=== PATIENT | male | born 1975 | race Caucasian/White ===

== ENCOUNTER → 2021-09-09 13:29 | Outpatient (BNVA) | payer MEDICARE, SELFPAY | PROVIDERS: Visit Provider Psychiatry & Neurology Psychiatry | DX: F43.12 Post-traumatic stress disorder, chronic (principal); F31.9 Bipolar disorder, unspecified; F17.210 Nicotine dependence, cigarettes, uncomplicated; F12.20 Cannabis dependence, uncomplicated; F10.21 Alcohol dependence, in remission | CPT/HCPCS: 99204 ==

== ENCOUNTER → 2021-11-04 10:55 | Outpatient (BNVA) | payer MEDICARE, SELFPAY | PROVIDERS: Visit Provider Psychiatry & Neurology Psychiatry | DX: F43.12 Post-traumatic stress disorder, chronic (principal); F31.9 Bipolar disorder, unspecified; F17.210 Nicotine dependence, cigarettes, uncomplicated; F12.20 Cannabis dependence, uncomplicated; F10.21 Alcohol dependence, in remission; F60.3 Borderline personality disorder | CPT/HCPCS: 99214 ==

== ENCOUNTER → 2021-12-16 11:12 | Outpatient (BNVA) | payer MEDICARE, SELFPAY | PROVIDERS: Visit Provider Psychiatry & Neurology Psychiatry | DX: F60.3 Borderline personality disorder (principal); F31.9 Bipolar disorder, unspecified; F43.12 Post-traumatic stress disorder, chronic; F10.21 Alcohol dependence, in remission; F12.20 Cannabis dependence, uncomplicated; Z79.899 Other long term (current) drug therapy; F17.210 Nicotine dependence, cigarettes, uncomplicated | CPT/HCPCS: 99214 ==

== ENCOUNTER 2022-05-17 17:13 | Emergency (ER) | payer MEDICARE, SELFPAY ==
[2022-05-17 17:51] VITALS: BP 134/90; PULSE 108; RESP 16; TEMP 36.8; O2SAT 96; BMI 30.3
[2022-05-17 18:06] VITALS: BP 134/90; PULSE 108; RESP 16; TEMP 36.8; O2SAT 96
--- NOTE | 2022-05-17 18:10 | ED_ITS ---
HPI - Dental/Oral General: Chief complaint: Dental/Oral Stated complaint: dental pain Time Seen by Provider: 05/17/22 18:04 History of Present Illness: Patient is a 46-year-old male comes to the ED with dental pain. Symptoms started approximately 3 days ago. Pain started in the left lower jaw. He rates pain currently a 7 out of 10. He has multiple teeth with extensive dental decay. He is currently calling around to dentist office to get an appointment set up. Associated symptoms: Denies fever(s) or odynophagia Review of Systems Const: Denies: fever(s), chills or fatigue Eyes: Denies: change in vision or eye discomfort ENMT: Reports: dental pain; Denies: throat pain, odynophagia, nasal discharge or nasal congestion Card: Denies: chest pain, palpitations, edema, swelling of feet/ankles, dyspnea on exertion or orthopnea Resp: Denies: dyspnea, productive cough or non-productive cough GI: Denies: abdominal pain, nausea, vomiting, diarrhea, constipation or hematochezia : Denies: flank pain, difficulty urinating, dysuria or hematuria Musc: Denies: neck pain, back pain or extremity swelling Skin/Breast: Denies: rash or new lesions Neuro: Denies: headache(s), numbness in extremities or weakness in extremities PFS ED PFSH: Medical History (Updated 05/17/22 @ 22:53 by ALEXANDRIA Hdz) No pertinent family history Psychiatric care Social History Smoking and tobacco status: current every day smoker cigarettes Packs smoked per day: 1 Years cigarettes smoked: 30 Quit status (tobacco): has tried quititng Number of times tried to quit tobacco: 1 Second hand smoke exposure: Yes Physical Exam Const: COMMON NORMALS: no acute distress, patient oriented x3 and alert GENERAL APPEARANCE: cooperative HENMT: COMMON NORMALS: normocephalic HEAD & SCALP: normocephalic MOUTH: Normal oral and palatal mucosa present TEETH & GINGIVA: Yes abnormal tooth and associated gingiva (Multiple extensive dental decay throughout teeth on bot kay jaw) lower left tender and with associated gingival edema, Yes caries and Yes poor dentition THROAT: posterior oropharynx normal and uvula midline Neck/C-Spine: COMMON NORMALS: supple GENERAL: Yes normal visual inspection Resp: COMMON NORMALS: normal respiratory effort, No retractions, No use of accessory muscles and clear to auscultation bilaterally AUSCULTATION: clear to auscultation bilaterally Cardio: COMMON NORMALS: regular rate, regular rhythm, S1 normal heart sound present, S2 normal heart sound present, No gallops present (Cardio), No clicks present (Cardio), No murmurs present (Cardio) and Peripheral pulses 2+ throughout RATE: regular rate RHYTHM: regular rhythm HEART SOUNDS: S1 normal heart sound present and S2 normal heart sound present PERIPHERAL PULSES: Peripheral pulses 2+ throughout GI: COMMON NORMALS: Normal to inspection, nondistended, normoactive bowel sounds present, Soft to palpation, non-tender and no masses PALPATION: Yes Soft to palpation : COMMON NORMALS: Yes no CVA tenderness BLADDER/KIDNEY EXAM: Yes no CVA tenderness Back/Pelvis: COMMON NORMALS: no CVA tenderness Extremity: COMMON NORMALS: normal to inspection Neuro: COMMON NORMALS: patient oriented x3 SENSORIUM/ORIENTATION: Yes alert GAIT: Yes Normal gait present Skin: GENERAL SKIN EXAM: dry skin Course Vital Signs: Vital signs: Vital Signs Temperature 98.3 F 05/17/22 18:06 Pulse Rate 108 H 05/17/22 18:06 Respiratory Rate 16 05/17/22 18:06 Blood Pressure 134/90 05/17/22 18:06 Pulse Oximetry 96 05/17/22 18:06 Oxygen Delivery Me thod 05/17/22 18:06 MDM - Dental/Oral Medical Decision Making Patient is a 46 year old male in no acute distress that comes to the ED with dental pain. He has multiple and very extensive dental decay's throughout his teeth on his left lower jaw. Denies any fevers or trouble breathing. Vitals are stable. Patient was discharged home with a prescription for clindamycin, lidocaine viscous and Celebrex for pain. He was told to contact a dentist to have his dental pain further evaluated. Patient understood agree with plan. Discharge Plan Discharge Patient Disposition: Home Clinical Impression: Pain due to dental caries Condition: Stable Prescriptions: New clindamycin HCl 150 mg capsule 300 mg PO QID 7 Days Qty: 56 0RF Celebrex 100 mg capsule 100 mg PO BID PRN (Reason: pain) Qty: 20 0RF Lidocaine Viscous 2 % solution 1 applic mucous membrane BID PRN (Reason: pain) Qty: 100 0RF Rx Instructions: Swish and spit 5 mL twice daily as needed dental pain No Action omega-3 fatty acids [Fish Oil Concentrate] 1,000 mg capsule 1,000 mg PO DAILY Centrum Ultra Men's 8 mg iron- 200 mcg-600 mcg tablet PO DAILY buspirone 30 mg tablet 30 mg PO BID Qty: 60 2RF quetiapine [Seroquel] 400 mg tablet 800 mg PO .HS Qty: 60 2RF hydroxyzine pamoate [Vistaril] 50 mg capsule 50 mg PO QID PRN (Reason: anxiety) Qty: 120 2RF trazodone 100 mg tablet 400 mg PO .HS PRN (Reason: insomnia) Qty: 120 2RF Discharge Orders: Discharge ED (Routine); Ordered 05/17/22 Ordered By: Raffaele Bryan Discharge Diet: Regular Discharge Activity: Resume usual activity Patient Instructions: Dental Caries (Cavities) Activity Restrictions/Additional Instructions: Calling an appointment set up with dentist for further evaluation and management of dental pain. take medications as prescribed. Return to the ER or your medical provider if condition worsens. Please read and understand discharge instructions. Thank you for choosing [facility] for your healthcare needs today. Please realize this is an emergency room and that we are providing you with a medical screening exam and this may not be complete and all inclusive of all the testing and or work up that you may need to determine your ailment or severity of your illness. It is very important that you follow up as instructed or that you return to the Emergency Department should you have concerns or if your condition changes or worsens in any way. Coding Level of Care Code ED Multimedia Author for Brina Harmon Exam Comprehensive
[2022-05-17] MEDS: HYDROcodone-acetaminophen 7.5-325 mg Tablet 1 TAB PO (18:20)
[2022-05-17] MEDS: clindamycin 150 mg Capsule 300 MG PO (18:26)
== END 2022-05-17 18:35 | disposition home or self-care (01) ==
PROVIDERS: Emergency Provider Physician Assistant
DX: K02.9 Dental caries, unspecified (principal); F17.210 Nicotine dependence, cigarettes, uncomplicated
CPT/HCPCS: 99283

== ENCOUNTER 2022-06-17 10:50 | Emergency (ER) | payer MEDICARE, SELFPAY ==
[2022-06-17] VITALS (7 sets, daily range): BP systolic 119–161; BP diastolic 84–99; PULSE 88–108; RESP 16–18; TEMP 36.6; O2SAT 91–96; BMI 29.8
--- NOTE | 2022-06-17 11:04 | ECG_ITS ---
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 Measurements Intervals [place] Rate: 112 P: 20 WI: 124 QRS: 81 QRSD: 100 T: 50 QT: 307 QTc: 421 Interpretive Statements SINUS TACHYCARDIA ABNORMAL RHYTHM ECG INTERPRETATION BASED ON A DEFAULT AGE OF 40 YEARS No previous ECG available for comparison Electronically Signed On 06-17-2022 20:42:01 CDT by Ania Potts M.D. [id number]
--- NOTE | 2022-06-17 11:24 | XRR_ITS ---
PROCEDURE INFORMATION: Exam: XR Chest Exam date and time: 06/17/2022 11:38 AM Age: 46 years old Clinical indication: Angina pectoris; Patient HX: Chest pain; Per PT headache is worse than chest pain; Sick xseveral days TECHNIQUE: Imaging protocol: Radiologic exam of the chest. Views: 1 view. COMPARISON: No relevant prior studies available. FINDINGS: Lungs: No pulmonary vascular congestion, pulmonary edema or pneumonia. Pleural spaces: No pleural effusion or pneumothorax. Heart/Mediastinum: The cardiac silhouette is not enlarged. The mediastinal contours are normal. Bones/joints: No acute osseous abnormality. XR/XR chest 1V portable [id number] IMPRESSION: No acute finding.
[2022-06-17 11:31] LABS: Basophils % 0.3 %; Eosinophils % 0.3 %; Hematocrit 45.8 % (42.0-52.0); Hemoglobin 15.7 g/dL (11.7-16.6); Lymphocytes # 1.3 10^3/uL (0.8-4.8); Lymphocytes % 21.3 %; Mean Corpuscular HGB Conc 34.3 g/dL (30.0-36.0); Mean Corpuscular Hemoglobin 30.6 pg (28.0-34.0); Mean Corpuscular Volume 89.3 fl (80-94); Mean Platelet Volume 9.5 fL (7.4-10.4); Monocytes # 0.6 10^3/uL (0.2-0.9); Monocytes % 10.5 %; Neutrophils # 4.04 10^3/uL (1.8-7.7); Neutrophils % 67.3 %; Nucleated Red Blood Cells % 0 %; Platelet Count 171 10^3/cmm (130-400); Red Blood Count 5.13 10^6/uL (4.1-5.3); Red Cell Distribution Width 14.7 % (12.1-15.1)
[2022-06-17 11:47] LABS: Troponin(5th) Baseline 6 ng/L (0-15)
[2022-06-17 11:49] LABS: Alanine Aminotransferase 65 U/L (0-41); Albumin Level 4.3 g/dL (3.5-5.2); Alkaline Phosphatase 70 U/L (40-130); Anion Gap 17.2 (5-19); Blood Urea Nitrogen 15 mg/dL (6-20); Calcium 9.2 mg/dL (8.5-10.5); Carbon Dioxide 20 mmol/L (22-29); Chloride 100 mmol/L (98-107); Glomerular Filtration Rate 91.7 mL/min (90-130); Glucose 144 mg/dL (65-115); Osmolality Calculated 279 mOsm/kg (285-295); Potassium 4.2 mmol/L (3.5-5.1); Sodium 133 mmol/L (136-145); Total Bilirubin 0.2 mg/dL (0.15-1.2); Total Protein 7.3 g/dL (6.6-8.7)
[2022-06-17 11:50] LABS: Aspartate Amino Transferase 54 U/L (0-40)
[2022-06-17] MEDS: promethazine 25 mg/mL SDV 1 mL IM (13:07)
[2022-06-17] MEDS: ketorolac 30 mg/mL INJ IVP (13:07)
--- NOTE | 2022-06-17 13:45 | CT_ITS ---
WS: [id number] CT HEAD TECHNIQUE: Noncontrast CT of the head obtained from the skullbase to the vertex. CLINICAL INFORMATION: migriane COMPARISON: None. DLP: 1153.[address] scans at [facility] use at least one of these dose optimization techniques: automated e xposure control; mA and/or kV adjustment per patient size (includes targeted exams where dose is matc hed to clinical indication); or iterative reconstruction. FINDINGS: No evidence of intracranial hemorrhage or mass effect. Ventricular system and basal cisterns are bradford nt. No extra-axial fluid collections. No evidence of mass or mass effect. Normal marie-white different iation. Paranasal sinuses and mastoid air cells are well aerated. .Normal visualized soft tissues. Incidental slightly low-lying cerebellar tonsils. No hydrocephalus. CT/CT head wo con* [id number] IMPRESSION: 1. No evidence of intracranial hemorrhage or mass effect. 2. No acute intracranial findings.
--- NOTE | 2022-06-17 13:50 | ECG_ITS ---
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 Measurements Intervals [place] Rate: 86 P: 49 IA: 144 QRS: 78 QRSD: 97 T: 59 QT: 324 QTc: 389 Interpretive Statements SINUS RHYTHM Compared to ECG 06/17/2022 11:04:51 Sinus tachycardia no longer present Electronically Signed On 06-17-2022 20:49:08 CDT by Ania Potts M.D. [email or web address] Media Systemmount [email or web address] health systemRed Falcon Development/store/[id number]
[2022-06-17 14:03] LABS: Troponin 5 2HR Delta 0 ABS# (0-10)
[2022-06-17] MEDS: morphine 4 mg/mL SDV 1 mL IVP (14:10)
--- NOTE | 2022-06-17 16:50 | W.ED.CHESTPA ---
HPI - Chest Pain General: Chief Complaint: Chest Pain Stated Complaint: Migraine/Dizzy/CP Time Seen by Provider: 06/17/22 11:17 Source: patient Mode of arrival: ambulatory History of Present Illness: 46-year-old male presents emergency room complaining of right-sided temporal headache. No recent falls or trauma or head injury. He is also complaining some vague chest discomfort that began sometime after the headache. No fever sweats chills no vomiting mild photophobia. MD complaint: chest pain Onset (ago): minute(s) Timing of current episode: episodic Prior episodes: Yes Onset: during rest Pain location: left chest Severity: mild Quality: tightness Relieving factors: nothing Exacerbating factors: nothing Associated symptoms: Deny abdominal pain, diaphoresis, dyspnea, fever(s), leg edema, nausea, palpitations, sense of impending doom, syncope or vomiting Treatment prior to arrival: none Review of Systems Const: Denies: fever(s), chills, fatigue, malaise or diaphoresis ENMT: Denies: throat pain, ear or mastoid pain, nasal discharge or nasal congestion Card: Reports: chest pain; Denies: palpitations or syncope Resp: Denies: dyspnea GI: Denies: abdominal pain, nausea or vomiting : Denies: flank pain, difficulty urinating, dysuria, urinary frequency or urinary urgency Skin/Breast: Denies: rash or pruritus PFSH ED PFSH: Medical History No pertinent family history Psychiatric care Social History Smoking and tobacco status: current every day smoker cigarettes Packs smoked per day: 0.75 Years cigarettes smoked: 30 Quit status (tobacco): has tried quititng Number of times tried to quit tobacco: 1 Second hand smoke exposure: Yes Smoking risk assessment/counseling performed?: No Alcohol intake: current Alcohol intake frequency: holidays/special occasions only Alcohol type: beer and hard liquor Desire information about alcohol rehabilitation?: No Counseling given: No Desire information about substance/drug rehabilitation?: No Counseling given: No Physical Exam Const: COMMON NORMALS: no acute distress GENERAL APPEARANCE: cooperative and comfortable ORIENTATION/CONSCIOUSNESS: Yes awake, Yes oriented to person, Yes oriented to place and Yes oriented to time HENMT: COMMON NORMALS: normocephalic, atraumatic and hearing grossly normal bilaterally HEAD & SCALP: normocephalic and atraumatic Resp: COMMON NORMALS: normal respiratory effort, No retractions, No use of accessory muscles and clear to auscultation bilaterally AUSCULTATION: clear to auscultation bilaterally Cardio: COMMON NORMALS: regular rate, regular rhythm and No murmurs present (Cardio) RATE: regular rate RHYTHM: regular rhythm GI: COMMON NORMALS: Soft to palpation and No hepatosplenomegaly present AUSCULTATION: Yes normoactive bowel sounds PALPATION: Yes Soft to palpation, No Tenderness to palpation present (GI), No Guarding due to palpation present (GI) and Yes No hepatosplenomegaly present Extremity: COMMON NORMALS: normal to inspection, capillary refill normal, no clubbing, cyanosis or edema, no calf tenderness and no pedal edema Neuro: SENSORIUM/ORIENTATION: Yes oriented to person, Yes oriented to place and Yes oriented to time Skin: COMMON NORMALS: no rashes or lesions noted GENERAL SKIN EXAM: no rashes or lesions noted Course Vital Signs: Vital signs: Vital Signs Temperature 97.8 F 06/17/22 11:13 Pulse Rate 90 06/17/22 14:40 Respiratory Rate 18 06/17/22 14:59 Blood Pressure 135/99 06/17/22 14:59 Pulse Oximetry 96 06/17/22 14:59 Oxygen Delivery Me thod 06/17/22 13:11 MDM - Chest Pain Medical Decision Making Labs imaging and EKG reviewed no acute EKG changes troponins normal discharge patient home his headache is much improved discharged home he can use promethazine Nantz NSAIDs such as ibuprofen or Aleve if has recurrent headache follow-up with primary care part if persists or recurs if significant worsening or change symptoms return to the emergency room. Medical Records I reviewed the patient's medical records. Lab Data I reviewed the patient's lab results. : 06/17/22 11:20 06/17/22 11:20 Radiology Impressions Chest X-Ray 06/17/22 11:24 IMPRESSION: No acute finding. Head CT 06/17/22 13:45 IMPRESSION: 1. No evidence of intracranial hemorrhage or mass effect. 2. No acute intracranial findings. Laboratory Results WBC 6.0 10^3/uL (4.0-10.0) 06/17/22 11:20 RBC 5.13 10^6/uL (4.1-5.3) 06/17/22 11:20 Hgb 15.7 g/dL (11.7-16.6) 06/17/22 11:20 Hct 45.8 % (42.0-52.0) 06/17/22 11:20 MCV 89.3 fl (80-94) 06/17/22 11:20 MCH 30.6 pg (28.0-34.0) 06/17/22 11:20 MCHC 34.3 g/dL (30.0-36.0) 06/17/22 11:20 RDW 14.7 % (12.1-15.1) 06/17/22 11:20 Plt Count 171 10^3/cmm (130-400) 06/17/22 11:20 MPV 9.5 fL (7.4-10.4) 06/17/22 11:20 Neut % (Auto) 67.3 % 06/17/22 11:20 Lymph % (Auto) 21.3 % 06/17/22 11:20 [place] % (Auto) 10.5 % 06/17/22 11:20 Eos % (Auto) 0.3 % 06/17/22 11:20 Baso % (Auto) 0.3 % 06/17/22 11:20 Neut # (Auto) 4.04 10^3/uL (1.8-7.7) 06/17/22 11:20 Lymph # (Auto) 1.3 10^3/uL (0.8-4.8) 06/17/22 11:20 [place] # (Auto) 0.6 10^3/uL (0.2-0.9) 06/17/22 11:20 Eos # (Auto) 0.0 10^3/uL (0.0-0.8) 06/17/22 11:20 Baso # (Auto) 0.0 10^3/uL (0.0-0.1) 06/17/22 11:20 Nucleated RBC % (auto) 0 % 06/17/22 11:20 Nucleated RBCs # 0.0 /100WBC 06/17/22 11:20 Sodium 133 mmol/L (136-145) L 06/17/22 11:20 Potassium 4.2 mmol/L (3.5-5.1) 06/17/22 11:20 Chloride 100 mmol/L (98-107) 06/17/22 11:20 Carbon Dioxide 20 mmol/L (22-29) L 06/17/22 11:20 Anion Gap 17.2 (5-19) 06/17/22 11:20 BUN 15 mg/dL (6-20) 06/17/22 11:20 Creatinine 0.9 mg/dL (0.7-1.2) 06/17/22 11:20 GFR Calculation 91.7 mL/min (90-130) 06/17/22 11:20 Glucose 144 mg/dL (65-115) H 06/17/22 11:20 Calculated Osmolality 279 mOsm/kg (285-295) L 06/17/22 11:20 Calcium 9.2 mg/dL (8.5-10.5) 06/17/22 11:20 Total Bilirubin 0.2 mg/dL (0.15-1.2) 06/17/22 11:20 AST 54 U/L (0-40) H 06/17/22 11:20 ALT 65 U/L (0-41) H 06/17/22 11:20 Alkaline Phosphatase 70 U/L (40-130) 06/17/22 11:20 Troponin T Baseline 6 ng/L (0-15) 06/17/22 11:20 Troponin T 120 Minute 6.00 ng/L (0-15) 06/17/22 13:30 Delta Troponin T 0 ABS# (0-10) 06/17/22 13:30 Total Protein 7.3 g/dL (6.6-8.7) 06/17/22 11:20 Albumin 4.3 g/dL (3.5-5.2) 06/17/22 11:20 Globulin 3.0 g/dL (1.3-4.6) 06/17/22 11:20 Discharge Plan Discharge Patient Disposition: Home Clinical Impression: Migraine, Atypical chest pain Condition: Stable Prescriptions: New promethazine 25 mg tablet 25 mg PO Q6H PRN (Reason: nausea and vomiting) Qty: 15 0RF No Action buspirone 30 mg tablet 30 mg PO BID Qty: 60 2RF hydroxyzine pamoate [Vistaril] 50 mg capsule 50 mg PO QID PRN (Reason: anxiety) Qty: 120 2RF Aspir-81 81 mg Tablet,Delayed Release (Dr/Ec) 162 mg PO Q6H PRN (Reason: Pain) Tylenol Ex Str Rapid Release 500 mg Tablet 1,000 mg PO Q6H PRN (Reason: Pain) Centrum Men 8 mg iron- 200 mcg-600 mcg Tablet 1 tab PO QAM trazodone 100 mg tablet 400 mg PO BEDTIME Seroquel 400 mg tablet 800 mg PO BEDTIME Discharge Orders: Discharge ED (Routine); Ordered 06/17/22 Ordered By: Kip Finch Discharge Diet: Usual diet Discharge Activity: Increase activity as tolerated Patient Instructions: Opioid Safety, Pain Management Activity Restrictions/Additional Instructions: Follow-up with your primary care doctor within the next week. You can use promethazine with Tylenol ibuprofen if symptoms recur. Avoid the use of alcohol, nicotine or marijuana. Coding Level of Care Code ED Fur Examiner for Brina Fwlorenzo Exam Detailed
== END 2022-06-17 15:00 | disposition home or self-care (01) ==
PROVIDERS: Emergency Provider Family Medicine
DX: R07.89 Other chest pain (principal); G43.909 Migraine, unspecified, not intractable, without status migrainosus; Z79.82 Long term (current) use of aspirin; F17.210 Nicotine dependence, cigarettes, uncomplicated
CPT/HCPCS: 36415; 70450; 71045; 80053; 84484; 85025; 93005; 96372; 96374; 96375; 99285; J1885; J2270; J2550

== ENCOUNTER 2022-08-30 17:02 | Emergency (ER) | payer MEDICARE, SELFPAY ==
[2022-08-30 17:12] VITALS: BP 155/97; PULSE 99; RESP 18; TEMP 36.8; O2SAT 99
--- NOTE | 2022-08-30 17:20 | ED_ITS ---
HPI - Dental/Oral General: Chief complaint: Dental/Oral Stated complaint: tooth pain Time Seen by Provider: 08/30/22 17:20 History of Present Illness: 47-year-old male patient comes in today with complaints of left lower jaw pain. Patient has a history of jaw repair with plate. Patient reports over the last 2 days he has had increasing pain and discomfort to the jaw. Patient has had difficulty sleeping due to the pain. Patient appears nontoxic. No significant redness or swelling is noted to the face. Review of Systems ENMT: Reports: dental pain PFSH ED PFSH: Medical History No pertinent family history Psychiatric care Social History Smoking and tobacco status: current every day smoker cigarettes Packs smoked per day: 0.75 Years cigarettes smoked: 30 Quit status (tobacco): has tried quititng Number of times tried to quit tobacco: 1 Second hand smoke exposure: Yes Smoking risk assessment/counseling performed?: No Alcohol intake: current Alcohol intake frequency: holidays/special occasions only Alcohol type: beer and hard liquor Desire information about alcohol rehabilitation?: No Counseling given: No Desire information about substance/drug rehabilitation?: No Counseling given: No Physical Exam Const: COMMON NORMALS: alert HENMT: COMMON NORMALS: normocephalic HEAD & SCALP: normocephalic MOUTH: Normal oral and palatal mucosa present Neck/C-Spine: COMMON NORMALS: full ROM Resp: COMMON NORMALS: normal respiratory effort Cardio: COMMON NORMALS: regular rate RATE: regular rate Extremity: COMMON NORMALS: normal to inspection Neuro: SENSORIUM/ORIENTATION: Yes alert Skin: COMMON NORMALS: turgor normal GENERAL SKIN EXAM: turgor normal Course Vital Signs: Vital signs: Vital Signs Temperature 98.2 F 08/30/22 17:12 Pulse Rate 99 08/30/22 17:12 Respiratory Rate 16 08/30/22 17:39 Blood Pressure 155/97 08/30/22 17:12 Pulse Oximetry 99 08/30/22 17:12 MDM - Dental/Oral Medical Decision Making 47-year-old male patient comes in today for complaints of pain and discomfort to his left lower jaw. Patient has been taking clindamycin for the past day when the pain started to the area. Patient does have a history of dental infection to that area. On exam patient has poor dentition with significant decay to the teeth on that side of the mouth. Patient also has a history of a jaw repair with plate. Differential diagnosis includes dental infection, periapical abscess, pain due to dental caries. Patient was treated for pain with 4 mg of morphine. Patient was also written for short prescription of hydrocodone. Patient was recommended follow-up with dentist on Thursday for further evaluation and treatment. Patient reports that he has a dentist available that he can follow-up with Thursday. Patient will continue with clindamycin antibiotic for infection concern. Discharge Plan Discharge Patient Disposition: Home Clinical Impression: Dental implant pain Qualifiers: Encounter type: initial encounter Qualified Code(s): T85.848A - Pain due to other internal prosthetic devices, implants and grafts, initial encounter Condition: Stable Prescriptions: New hydrocodone-acetaminophen 5-325 mg tablet 1 tab PO Q6H PRN (Reason: pain (scale score 7-10)) Qty: 7 0RF No Action buspirone 30 mg tablet 30 mg PO BID Qty: 60 2RF hydroxyzine pamoate [Vistaril] 50 mg capsule 50 mg PO QID PRN (Reason: anxiety) Qty: 120 2RF Aspir-81 81 mg Tablet,Delayed Release (Dr/Ec) 162 mg PO Q6H PRN (Reason: Pain) Tylenol Ex Str Rapid Release 500 mg Tablet 1,000 mg PO Q6H PRN (Reason: Pain) Centrum Men 8 mg iron- 200 mcg-600 mcg Tablet 1 tab PO QAM trazodone 100 mg tablet 400 mg PO BEDTIME Seroquel 400 mg tablet 800 mg PO BEDTIME promethazine 25 mg tablet 25 mg PO Q6H PRN (Reason: nausea and vomiting) Qty: 15 0RF Discharge Orders: Discharge ED (Routine); Ordered 08/30/22 Ordered By: Issac Irizarry Discharge Diet: Usual diet Discharge Activity: Increase activity as tolerated Patient Instructions: Toothache (ED), Opioid Safety Activity Restrictions/Additional Instructions: Home and rest. Drink plenty of fluids. Take antibiotic as directed. Follow-up with orofacial surgeon or dentist on Thursday or as scheduled. Coding Level of Care Code ED Corporate Fitness Program Coordinator for Brina Harmon
[2022-08-30 17:39] VITALS: RESP 16
[2022-08-30] MEDS: morphine 4 mg/mL SDV 1 mL IM (17:39)
[2022-08-30 18:24] VITALS: PULSE 102; RESP 18; O2SAT 97
[2022-08-30] MEDS: ketorolac 30 mg/mL INJ IM (18:24)
== END 2022-08-30 18:25 | disposition home or self-care (01) ==
LOC: ER 17:30
PROVIDERS: Emergency Provider Nurse Practitioner Family
DX: T85.848A Pain due to other internal prosthetic devices, implants and grafts, initial encounter (principal); Z79.82 Long term (current) use of aspirin; F17.210 Nicotine dependence, cigarettes, uncomplicated
CPT/HCPCS: 96372; 99284; J1885; J2270

== ENCOUNTER 2022-09-01 12:44 | Emergency (ER) | payer MEDICARE, SELFPAY ==
[2022-09-01 13:23] VITALS: BP 162/106; PULSE 108; RESP 18; TEMP 37.2; O2SAT 98
[2022-09-01 14:22] VITALS: PULSE 100; RESP 16; O2SAT 98
--- NOTE | 2022-09-01 14:23 | PC.NURSE ---
WHILE WITH PT IN LOBBY PT IS IN NAD.
--- NOTE | 2022-09-01 15:41 | CTR_ITS ---
PROCEDURE INFORMATION: Exam: CT Neck With Contrast Exam date and time: 09/01/2022 5:08 PM Age: 47 years old Clinical indication: Other: Left jaw swelling; Prior surgery; Surgery date: 6+ months; Surgery type: Chin; Patient HX: Left side facial/dental pain and swelling x 3 days; Additional info: Left mandible dental pain w/ swelling into neck TECHNIQUE: Imaging protocol: Computed tomography of the neck with contrast. Radiation optimization: All CT scans at this facility use at least one of these dose optimization techniques: automated exposure control; mA and/or kV adjustment per patient size (includes targeted exams where dose is matched to clinical indication); or iterative reconstruction. Contrast material: OMNIPAQUE 350; Contrast volume: 95 ml; Contrast route: INTRAVENOUS (IV); COMPARISON: CT head wo con* [id number] 06/17/2022 2:17 PM RADIATION DOSE METRICS: Total DLP (mGy-cm): 266.82 FINDINGS: Paranasal sinuses: There is a small amount of mucosal thickening in the sphenoid sinus. Visualized paranasal sinuses are otherwise clear. Dental: There is dental caries involving the left 2nd lower premolar tooth with partial destruction of the crown and lucency surrounding the root zone consistent with periapical abscess. This may be the source of the patient's facial infection. Pharynx: Unremarkable. No significant tonsillar enlargement. Larynx: Unremarkable. Epiglottis is normal. Prevertebral and retropharyngeal spaces: Unremarkable. Salivary glands: There is some focal swelling and enhancement in the left submandibular space adjacent to the left side of the mandible which may represent some additional infection. Thyroid: Normal. No enlarged or calcified nodules. Lymph nodes: There are mildly prominent lymph nodes in the left jugular chain. Trachea: Visualized trachea is unremarkable. Lungs: Unremarkable as visualized. Bones/joints: There are old postsurgical changes of the left side of the mandible near the symphysis with prior internal fixation using metallic plate and multiple screws. No acute fracture is identified. Soft tissues: There is soft tissue swelling mainly on the left side of the face with some thickening of the platysma muscle on the left and some soft tissue edema along the left side of the mandible. No definite abscess is demonstrated but there is possibly small fluid density collection adjacent to the left side of the mandible which could represent small subperiosteal abscess. CT/CT neck w con* [id number] IMPRESSION: 1. Dental and periodontal disease with findings worrisome for periapical abscess involving lower left premolar tooth 2. Findings of infection involving the left continuous drier operator and submandibular spaces.
--- NOTE | 2022-09-01 15:42 | ED_ITS ---
Documented by User: ALEXANDRIA Hdz 09/02/22 12:20 HPI - Dental/Oral General: Chief complaint: Dental/Oral Stated complaint: tooth pain and swelling Time Seen by Provider: 09/01/22 15:29 History of Present Illness: Patient is a 47-year-old male comes to the ED with dental pain and swelling. Patient states that he was seen here back on August 30 for same complaint. His dental pain is in the left lower mandible and he also has swelling in his left lower mandible. He has been taking the clindamycin as prescribed since discharge from ED couple days ago. His swelling is gotten worse and now he feels swelling into the left side of his neck and throat. He states that the swelling feels like it is causing some trouble breathing and he has difficulty swallowing. He rates the dental pain currently an 8 out of 10. Denies any other symptoms Associated symptoms: Denies fever(s) or odynophagia Review of Systems Const: Denies: fever(s), chills or fatigue Eyes: Denies: change in vision or eye discomfort ENMT: Reports: dental pain; Denies: throat pain, odynophagia, nasal discharge or nasal congestion Card: Denies: chest pain, palpitations, edema, swelling of feet/ankles, dyspnea on exertion or orthopnea Resp: Denies: dyspnea, productive cough or non-productive cough GI: Denies: abdominal pain, nausea, vomiting, diarrhea, constipation or hematochezia : Denies: flank pain, difficulty urinating, dysuria or hematuria Musc: Denies: neck pain, back pain or extremity swelling Skin/Breast: Denies: rash or new lesions Neuro: Denies: headache(s), numbness in extremities or weakness in extremities PFSH ED PFSH: Medical History No pertinent family history Psychiatric care Social History Smoking and tobacco status: current every day smoker cigarettes Packs smoked per day: 0.75 Years cigarettes smoked: 30 Quit status (tobacco): has tried quititng Number of times tried to quit tobacco: 1 Second hand smoke exposure: Yes Smoking risk assessment/counseling performed?: No Alcohol intake: current Alcohol intake frequency: holidays/special occasions only Alcohol type: beer and hard liquor Desire information about alcohol rehabilitation?: No Counseling given: No Desire information about substance/drug rehabilitation?: No Counseling given: No Physical Exam Const: COMMON NORMALS: patient oriented x3 and alert GENERAL APPEARANCE: cooperative HENMT: COMMON NORMALS: normocephalic HEAD & SCALP: normocephalic FACE & SINUS: edema on the left mandible and submandibular and Facial tenderness on exam of face and sinuses on the left mandible and submandibular MOUTH: Normal oral and palatal mucosa present TEETH & GINGIVA: Yes caries THROAT: posterior oropharynx normal and uvula midline Neck/C-Spine: COMMON NORMALS: supple GENERAL: Yes normal visual inspection Resp: COMMON NORMALS: normal respiratory effort, No retractions, No use of ac cessory muscles and clear to auscultation bilaterally AUSCULTATION: clear to auscultation bilaterally Cardio: COMMON NORMALS: regular rate, regular rhythm, S1 normal heart sound present, S2 normal heart sound present, No gallops present (Cardio), No clicks present (Cardio), No murmurs present (Cardio) and Peripheral pulses 2+ throughout RATE: regular rate RHYTHM: regular rhythm HEART SOUNDS: S1 normal heart sound present and S2 normal heart sound present PERIPHERAL PULSES: Peripheral pulses 2+ throughout GI: COMMON NORMALS: Normal to inspection, nondistended, normoactive bowel sounds present, Soft to palpation, non-tender and no masses PALPATION: Yes Soft to palpation : COMMON NORMALS: Yes no CVA tenderness BLADDER/KIDNEY EXAM: Yes no CVA tenderness Back/Pelvis: COMMON NORMALS: no CVA tenderness Extremity: COMMON NORMALS: normal to inspection Neuro: COMMON NORMALS: patient oriented x3 SENSORIUM/ORIENTATION: Yes alert GAIT: Yes Normal gait present Skin: GENERAL SKIN EXAM: dry skin Course Vital Signs: Vital signs: Vital Signs Temperature 98.9 F 09/01/22 13:23 Pulse Rate 100 09/01/22 14:22 Respiratory Rate 16 09/01/22 14:22 Blood Pressure 162/106 09/01/22 13:23 Pulse Oximetry 98 09/01/22 14:22 Oxygen Delivery Me thod 09/01/22 14:22 MDM - Dental/Oral Lab Data I reviewed the patient's lab results. 09/01/22 16:10 09/01/22 16:[address] 09/01/22 15:41 IMPRESSION: 1. Dental and periodontal disease with findings worrisome for periapical abscess involving lower left premolar tooth 2. Findings of infection involving the left engraved roller inspector and submandibular spaces. Laboratory Results WBC 14.5 10^3/uL (4.0-10.0) H 09/01/22 16:10 RBC 5.33 10^6/uL (4.1-5.3) H 09/01/22 16:10 Hgb 16.9 g/dL (11.7-16.6) H 09/01/22 16:10 Hct 48.3 % (42.0-52.0) 09/01/22 16:10 MCV 90.6 fl (80-94) 09/01/22 16:10 MCH 31.7 pg (28.0-34.0) 09/01/22 16:10 MCHC 35.0 g/dL (30.0-36.0) 09/01/22 16:10 RDW 12.7 % (12.1-15.1) 09/01/22 16:10 Plt Count 266 10^3/cmm (130-400) 09/01/22 16:10 MPV 8.9 fL (7.4-10.4) 09/01/22 16:10 Neut % (Auto) 76.7 % 09/01/22 16:10 Lymph % (Auto) 12.4 % 09/01/22 16:10 [place] % (Auto) 10.1 % 09/01/22 16:10 Eos % (Auto) 0.2 % 09/01/22 16:10 Baso % (Auto) 0.3 % 09/01/22 16:10 Neut # (Auto) 11.07 10^3/uL (1.8-7.7) H 09/01/22 16:10 Lymph # (Auto) 1.8 10^3/uL (0.8-4.8) 09/01/22 16:10 [place] # (Auto) 1.5 10^3/uL (0.2-0.9) H 09/01/22 16:10 Eos # (Auto) 0.0 10^3/uL (0.0-0.8) 09/01/22 16:10 Baso # (Auto) 0.1 10^3/uL (0.0-0.1) 09/01/22 16:10 Nucleated RBC % (auto) 0 % 09/01/22 16:10 Nucleated RBCs # 0.0 /100WBC 09/01/22 16:10 Sodium 135 mmol/L (136-145) L 09/01/22 16:10 Potassium 3.8 mmol/L (3.5-5.1) 09/01/22 16:10 Chloride 97 mmol/L (98-107) L 09/01/22 16:10 Carbon Dioxide 28 mmol/L (22-29) 09/01/22 16:10 Anion Gap 13.8 (5-19) 09/01/22 16:10 BUN 10 mg/dL (6-20) 09/01/22 16:10 Creatinine 0.7 mg/dL (0.7-1.2) 09/01/22 16:10 GFR Calculation 122.0 mL/min (90-130) 09/01/22 16:10 Glucose 114 mg/dL (65-115) 09/01/22 16:10 Calculated Osmolality 280 mOsm/kg (285-295) L 09/01/22 16:10 Calcium 10.2 mg/dL (8.5-10.5) 09/01/22 16:10 Total Bilirubin 0.7 mg/dL (0.15-1.2) 09/01/22 16:10 AST 11 U/L (0-40) 09/01/22 16:10 ALT 16 U/L (0-41) 09/01/22 16:10 Alkaline Phosphatase 91 U/L (40-130) 09/01/22 16:10 Total Protein 8.4 g/dL (6.6-8.7) 09/01/22 16:10 Albumin 4.6 g/dL (3.5-5.2) 09/01/22 16:10 Globulin 3.8 g/dL (1.3-4.6) 09/01/22 16:10 Discharge Plan Discharge Patient Disposition: Home Clinical Impression: Periapical abscess Condition: Stable Prescriptions: New clindamycin HCl 300 mg capsule 300 mg PO QID 7 Days Qty: 28 0RF hydrocodone-acetaminophen 5-325 mg tablet 1 tab PO Q6H PRN (Reason: pain (scale score 7-10)) Qty: 15 0RF No Action buspirone 30 mg tablet 30 mg PO BID Qty: 60 2RF hydroxyzine pamoate [Vistaril] 50 mg capsule 50 mg PO QID PRN (Reason: anxiety) Qty: 120 2RF hydrocodone-acetaminophen 5-325 mg tablet 1 tab PO Q6H PRN (Reason: pain (scale score 7-10)) Qty: 7 0RF Aspir-81 81 mg Tablet,Delayed Release (Dr/Ec) 162 mg PO Q6H PRN (Reason: Pain) Tylenol Ex Str Rapid Release 500 mg Tablet 1,000 mg PO Q6H PRN (Reason: Pain) Centrum Men 8 mg iron- 200 mcg-600 mcg Tablet 1 tab PO QAM trazodone 100 mg tablet 400 mg PO BEDTIME Seroquel 400 mg tablet 800 mg PO BEDTIME promethazine 25 mg tablet 25 mg PO Q6H PRN (Reason: nausea and vomiting) Qty: 15 0RF Discharge Orders: Discharge ED (Routine); Ordered 09/01/22 Ordered By: Issac Irizarry Patient Instructions: Dental Abscess (ED), Opioid Safety Activity Restrictions/Additional Instructions: Continue with antibiotics clindamycin 300 mg 4 times a day. Use acetaminophen and ibuprofen to control pain. Use hydrocodone for severe pain. Follow-up with dentist for definitive care. Sign Out Sign Out Data: Patient Sign Out occurred on 09/01/22 at 17:17. Patient's care was discussed, and care was transferred from to Issac Irizarry. Post-Handoff Eval: Patient is awaiting CT scan, patient appears in no acute distress, patient requested further pain medications. Coding Level of Care Code ED Head Transfer Clerk for Chg Fwd Exam Comprehensive Documented by User: HAYDEN Lopez 09/01/22 20:24 HPI - Dental/Oral General: Chief complaint: Dental/Oral Stated complaint: tooth pain and swelling Time Seen by Provider: 09/01/22 15:29 PFSH ED PFSH: Medical History No pertinent family history Psychiatric care Social History Smoking and tobacco status: current every day smoker cigarettes Packs smoked per day: 0.75 Years cigarettes smoked: 30 Quit status (tobacco): has tried quititng Number of times tried to quit tobacco: 1 Second hand smoke exposure: Yes Smoking risk assessment/counseling performed?: No Alcohol intake: current Alcohol intake frequency: holidays/special occasions only Alcohol type: beer and hard liquor Desire information about alcohol rehabilitation?: No Counseling given: No Desire information about substance/drug rehabilitation?: No Counseling given: No Course Vital Signs: Vital signs: Vital Signs Temperature 98.9 F 09/01/22 13:23 Pulse Rate 100 09/01/22 14:22 Respiratory Rate 16 09/01/22 14:22 Blood Pressure 162/106 09/01/22 13:23 Pulse Oximetry 98 09/01/22 14:22 Oxygen Delivery Me thod 09/01/22 14:22 MDM - Dental/Oral Medical Decision Making Patient came in today for concerns of increased swelling to the left facial cheek. Patient was seen 3 to 4 days ago for dental pain and since then has had some increased swelling. Patient appears nontoxic. Patient reports some difficulty swallowing. Posterior pharynx was unremarkable. Differential diagnosis includes but not limited to retropharyngeal abscess, periapical abscess, cellulitis. Laboratory values noted a white count of 14,000, sodium of 135, CT notes a dental and periductal disease suggestive of probable periapical abscess in the left lower molar. Reviewed exam with patient with recommendations for treatment and follow-up with dentist. Recommend continuing antibiotics. Patient was given a dose of steroids 10 mg in the ER and 600 mg of clindamycin. Patient reported understanding of care plan need for follow-up or return to the ER. Lab Data 09/01/22 16:10 09/01/22 16:[address] 09/01/22 15:41 IMPRESSION: 1. Dental and periodontal disease with findings worrisome for periapical abscess involving lower left premolar tooth 2. Findings of infection involving the left engraved roller inspector and submandibular spaces. Laboratory Results WBC 14.5 10^3/uL (4.0-10.0) H 09/01/22 16:10 RBC 5.33 10^6/uL (4.1-5.3) H 09/01/22 16:10 Hgb 16.9 g/dL (11.7-16.6) H 09/01/22 16:10 Hct 48.3 % (42.0-52.0) 09/01/22 16:10 MCV 90.6 fl (80-94) 09/01/22 16:10 MCH 31.7 pg (28.0-34.0) 09/01/22 16:10 MCHC 35.0 g/dL (30.0-36.0) 09/01/22 16:10 RDW 12.7 % (12.1-15.1) 09/01/22 16:10 Plt Count 266 10^3/cmm (130-400) 09/01/22 16:10 MPV 8.9 fL (7.4-10.4) 09/01/22 16:10 Neut % (Auto) 76.7 % 09/01/22 16:10 Lymph % (Auto) 12.4 % 09/01/22 16:10 [place] % (Auto) 10.1 % 09/01/22 16:10 Eos % (Auto) 0.2 % 09/01/22 16:10 Baso % (Auto) 0.3 % 09/01/22 16:10 Neut # (Auto) 11.07 10^3/uL (1.8-7.7) H 09/01/22 16:10 Lymph # (Auto) 1.8 10^3/uL (0.8-4.8) 09/01/22 16:10 [place] # (Auto) 1.5 10^3/uL (0.2-0.9) H 09/01/22 16:10 Eos # (Auto) 0.0 10^3/uL (0.0-0.8) 09/01/22 16:10 Baso # (Auto) 0.1 10^3/uL (0.0-0.1) 09/01/22 16:10 Nucleated RBC % (auto) 0 % 09/01/22 16:10 Nucleated RBCs # 0.0 /100WBC 09/01/22 16:10 Sodium 135 mmol/L (136-145) L 09/01/22 16:10 Potassium 3.8 mmol/L (3.5-5.1) 09/01/22 16:10 Chloride 97 mmol/L (98-107) L 09/01/22 16:10 Carbon Dioxide 28 mmol/L (22-29) 09/01/22 16:10 Anion Gap 13.8 (5-19) 09/01/22 16:10 BUN 10 mg/dL (6-20) 09/01/22 16:10 Creatinine 0.7 mg/dL (0.7-1.2) 09/01/22 16:10 GFR Calculation 122.0 mL/min (90-130) 09/01/22 16:10 Glucose 114 mg/dL (65-115) 09/01/22 16:10 Calculated Osmolality 280 mOsm/kg (285-295) L 09/01/22 16:10 Calcium 10.2 mg/dL (8.5-10.5) 09/01/22 16:10 Total Bilirubin 0.7 mg/dL (0.15-1.2) 09/01/22 16:10 AST 11 U/L (0-40) 09/01/22 16:10 ALT 16 U/L (0-41) 09/01/22 16:10 Alkaline Phosphatase 91 U/L (40-130) 09/01/22 16:10 Total Protein 8.4 g/dL (6.6-8.7) 09/01/22 16:10 Albumin 4.6 g/dL (3.5-5.2) 09/01/22 16:10 Globulin 3.8 g/dL (1.3-4.6) 09/01/22 16:10 Discharge Plan Discharge Patient Disposition: Home Clinical Impression: Periapical abscess Condition: Stable Prescriptions: New clindamycin HCl 300 mg capsule 300 mg PO QID 7 Days Qty: 28 0RF hydrocodone-acetaminophen 5-325 mg tablet 1 tab PO Q6H PRN (Reason: pain (scale score 7-10)) Qty: 15 0RF No Action buspirone 30 mg tablet 30 mg PO BID Qty: 60 2RF hydroxyzine pamoate [Vistaril] 50 mg capsule 50 mg PO QID PRN (Reason: anxiety) Qty: 120 2RF hydrocodone-acetaminophen 5-325 mg tablet 1 tab PO Q6H PRN (Reason: pain (scale score 7-10)) Qty: 7 0RF Aspir-81 81 mg Tablet,Delayed Release (Dr/Ec) 162 mg PO Q6H PRN (Reason: Pain) Tylenol Ex Str Rapid Release 500 mg Tablet 1,000 mg PO Q6H PRN (Reason: Pain) Centrum Men 8 mg iron- 200 mcg-600 mcg Tablet 1 tab PO QAM trazodone 100 mg tablet 400 mg PO BEDTIME Seroquel 400 mg tablet 800 mg PO BEDTIME promethazine 25 mg tablet 25 mg PO Q6H PRN (Reason: nausea and vomiting) Qty: 15 0RF Discharge Orders: Discharge ED (Routine); Ordered 09/01/22 Ordered By: Issac Irizarry Patient Instructions: Dental Abscess (ED), Opioid Safety Activity Restrictions/Additional Instructions: Continue with antibiotics clindamycin 300 mg 4 times a day. Use acetaminophen and ibuprofen to control pain. Use hydrocodone for severe pain. Follow-up with dentist for definitive care. Sign Out Sign Out Data: Patient Sign Out occurred on 09/01/22 at 17:17. Patient's care was discussed, and care was transferred from to Issac Irizarry. Post-Handoff Eval: Patient is awaiting CT scan, patient appears in no acute distress, patient requested further pain medications. Coding Level of Care Code ED Head Transfer Clerk for Brina Fwlorenzo Exam Comprehensive
[2022-09-01] MEDS: iohexol 350 mg/mL 500 mL Btl (per mL) IV (16:10)
[2022-09-01] MEDS: morphine 4 mg/mL SDV 1 mL IVP ×2 (16:21→17:43)
[2022-09-01] MEDS: ondansetron 2 mg/ML SDV 2 mL 4 MG IVP (16:21)
[2022-09-01 16:28] LABS: Basophils # 0.1 10^3/uL (0.0-0.1); Basophils % 0.3 %; Eosinophils % 0.2 %; Hematocrit 48.3 % (42.0-52.0); Hemoglobin 16.9 g/dL (11.7-16.6); Lymphocytes # 1.8 10^3/uL (0.8-4.8); Lymphocytes % 12.4 %; Mean Corpuscular Hemoglobin 31.7 pg (28.0-34.0); Mean Corpuscular Volume 90.6 fl (80-94); Mean Platelet Volume 8.9 fL (7.4-10.4); Monocytes # 1.5 10^3/uL (0.2-0.9); Monocytes % 10.1 %; Neutrophils # 11.07 10^3/uL (1.8-7.7); Neutrophils % 76.7 %; Nucleated Red Blood Cells % 0 %; Platelet Count 266 10^3/cmm (130-400); Red Blood Count 5.33 10^6/uL (4.1-5.3); Red Cell Distribution Width 12.7 % (12.1-15.1); White Blood Count 14.5 10^3/uL (4.0-10.0)
[2022-09-01 16:46] LABS: Alanine Aminotransferase 16 U/L (0-41); Albumin Level 4.6 g/dL (3.5-5.2); Alkaline Phosphatase 91 U/L (40-130); Anion Gap 13.8 (5-19); Aspartate Amino Transferase 11 U/L (0-40); Blood Urea Nitrogen 10 mg/dL (6-20); Calcium 10.2 mg/dL (8.5-10.5); Carbon Dioxide 28 mmol/L (22-29); Chloride 97 mmol/L (98-107); Creatinine Clr Calc Pharmacy 163.8192; Globulin 3.8 g/dL (1.3-4.6); Glucose 114 mg/dL (65-115); Osmolality Calculated 280 mOsm/kg (285-295); Potassium 3.8 mmol/L (3.5-5.1); Sodium 135 mmol/L (136-145); Total Bilirubin 0.7 mg/dL (0.15-1.2); Total Protein 8.4 g/dL (6.6-8.7)
[2022-09-01] MEDS: clindamycin 600 MG/50 ML PREMIX 100 MG IV (17:43)
[2022-09-01] MEDS: dexamethasone 10 mg/mL INJ IVP (17:44)
[2022-09-01] MEDS: ketorolac 30 mg/mL INJ 15 MG IVP (17:44)
== END 2022-09-01 18:36 | disposition home or self-care (01) ==
PROVIDERS: Physician Assistant; Emergency Provider Nurse Practitioner Family
DX: K04.7 Periapical abscess without sinus (principal); Z79.82 Long term (current) use of aspirin; F17.210 Nicotine dependence, cigarettes, uncomplicated
CPT/HCPCS: 70491; 80053; 85025; 96365; 96375; 96376; 99285; J1100; J1885; J2270; J2405; J3490; Q9967

== ENCOUNTER 2022-09-24 11:07 | Emergency (ER) | payer MEDICARE, SELFPAY ==
[2022-09-24 11:10] VITALS: BP 122/81; PULSE 107; RESP 18; TEMP 36.8; O2SAT 96; BMI 30.7
--- NOTE | 2022-09-24 11:25 | W.ED.DENTAL ---
HPI - Dental/Oral General: Chief complaint: Dental/Oral Stated complaint: face swelling Time Seen by Provider: 09/24/22 11:16 History of Present Illness: Patient is a 47-year-old male who comes to the ED with dental pain. Patient has been seen here in the ED for same complaint back on September 01. He is currently trying to get an appointment scheduled with a dentist. Dental pain is rated a 9 out of 10. Dental pain located left lower molar region. He just finished taking his previously prescribed clindamycin approximately 10 days ago. Associated symptoms: Denies fever(s) or odynophagia Review of Systems Const: Denies: fever(s), chills or fatigue Eyes: Denies: change in vision or eye discomfort ENMT: Reports: dental pain; Denies: throat pain, odynophagia, nasal discharge or nasal congestion Card: Denies: chest pain, palpitations, edema, swelling of feet/ankles, dyspnea on exertion or orthopnea Resp: Denies: dyspnea, productive cough or non-productive cough GI: Denies: abdominal pain, nausea, vomiting, diarrhea, constipation or hematochezia : Denies: flank pain, difficulty urinating, dysuria or hematuria Musc: Denies: neck pain, back pain or extremity swelling Skin/Breast: Denies: rash or new lesions Neuro: Denies: headache(s), numbness in extremities or weakness in extremities PFSH ED PFSH: Medical History No pertinent family history Psychiatric care Social History Smoking and tobacco status: current every day smoker cigarettes Packs smoked per day: 0.75 Years cigarettes smoked: 30 Quit status (tobacco): has tried quititng Number of times tried to quit tobacco: 1 Second hand smoke exposure: Yes Smoking risk assessment/counseling performed?: No Alcohol intake: current Alcohol intake frequency: holidays/special occasions only Alcohol type: beer and hard liquor Desire information about alcohol rehabilitation?: No Counseling given: No Desire information about substance/drug rehabilitation?: No Counseling given: No Physical Exam Const: COMMON NORMALS: no acute distress, patient oriented x3 and alert HENMT: COMMON NORMALS: normocephalic HEAD & SCALP: normocephalic FACE & SINUS: edema on the left mandible MOUTH: Normal oral and palatal mucosa present TEETH & GINGIVA: Yes caries and Yes poor dentition THROAT: posterior oropharynx normal and uvula midline Neck/C-Spine: COMMON NORMALS: supple GENERAL: Yes normal visual inspection Resp: COMMON NORMALS: normal respiratory effort, No retractions, No use of accessory muscles and clear to auscultation bilaterally AUSCULTATION: clear to auscultation bilaterally Cardio: COMMON NORMALS: regular rate, regular rhythm, S1 normal heart sound present, S2 normal heart sound present, No gallops present (Cardio), No clicks present (Cardio), No murmurs present (Cardio) and Peripheral pulses 2+ throughout RATE: regular rate RHYTHM: regular rhythm HEART SOUNDS: S1 normal heart sound present and S2 normal heart sound present PERIPHERAL PULSES: Peripheral pulses 2+ throughout GI: COMMON NORMALS: Normal to inspection, nondistended, normoactive bowel sounds present, Soft to palpation, non-tender and no masses PALPATION: Yes Soft to palpation : COMMON NORMALS: Yes no CVA tenderness BLADDER/KIDNEY EXAM: Yes no CVA tenderness Back/Pelvis: COMMON NORMALS: no CVA tenderness Extremity: COMMON NORMALS: normal to inspection Neuro: COMMON NORMALS: patient oriented x3 SENSORIUM/ORIENTATION: Yes alert GAIT: Yes Normal gait present Skin: GENERAL SKIN EXAM: dry skin Course Vital Signs: Vital signs: Vital Signs Temperature 98.3 F 09/24/22 11:10 Pulse Rate 107 H 09/24/22 11:10 Respiratory Rate 18 09/24/22 12:08 Blood Pressure 122/81 09/24/22 11:10 Pulse Oximetry 96 09/24/22 11:10 Oxygen Delivery Hi thod 09/24/22 11:10 [facility] - Dental/Oral Medical Decision Making Patient is a 47-year-old male comes the ED with dental pain. Patient was seen here back on September 01 and diagnosed with a periapical abscess. He is currently trying to get an appointment set up with a dentist. Patient appears nontoxic and in no acute distress. He has some left lower mandible swelling and extensive dental caries. Patient was given a dose of pain meds here in the ED and an antibiotic. He was discharged home with a prescription for hydrocodone to help with pain and Augmentin. Told to follow-up with dentist as soon as possible to have dental abscess treated. Patient understood and agreed with plan. Discharge Plan Discharge Patient Disposition: Home Clinical Impression: Periapical abscess Condition: Stable Prescriptions: New amoxicillin-pot clavulanate 875-125 mg tablet 1 tab PO BID 7 Days Qty: 14 0RF No Action trazodone 100 mg tablet 400 mg PO BEDTIME Qty: 120 0RF hydrocodone-acetaminophen 5-325 mg tablet 1 tab PO Q6H PRN (Reason: pain (scale score 7-10)) Qty: 7 0RF Aspir-81 81 mg Tablet,Delayed Release (Dr/Ec) 162 mg PO Q6H PRN (Reason: Pain) Tylenol Ex Str Rapid Release 500 mg Tablet 1,000 mg PO Q6H PRN (Reason: Pain) Centrum Men 8 mg iron- 200 mcg-600 mcg Tablet 1 tab PO QAM Seroquel 400 mg tablet 800 mg PO BEDTIME promethazine 25 mg tablet 25 mg PO Q6H PRN (Reason: nausea and vomiting) Qty: 15 0RF hydrocodone-acetaminophen 5-325 mg tablet 1 tab PO Q6H PRN (Reason: pain (scale score 7-10)) Qty: 15 0RF Discharge Orders: Discharge ED (Routine); Ordered 09/24/22 Ordered By: Raffaele Bryan Discharge Diet: Regular Discharge Activity: Increase activity as tolerated Activity Restrictions/Additional Instructions: Follow-up with dentist as soon as possible to get dental pain treated. Take medications as prescribed. Return to the ER or your medical provider if condition worsens. Please read and understand discharge instructions. Thank you for choosing [facility] for your healthcare needs today. Please realize this is an emergency room and that we are providing you with a medical screening exam and this may not be complete and all inclusive of all the testing and or work up that you may need to determine your ailment or severity of your illness. It is very important that you follow up as instructed or that you return to the Emergency Department should you have concerns or if your condition changes or worsens in any way. Coding Level of Care Code ED Quality Assurance Qa Lab Technician for Brina Harmon Exam Comprehensive
[2022-09-24 12:08] VITALS: RESP 18
[2022-09-24] MEDS: oxyCODONE-APAP 5-325 mg Tablet 1 TAB PO (12:08)
== END 2022-09-24 12:44 | disposition home or self-care (01) ==
PROVIDERS: Emergency Provider Physician Assistant
DX: K04.7 Periapical abscess without sinus (principal); Z79.82 Long term (current) use of aspirin; F17.210 Nicotine dependence, cigarettes, uncomplicated
CPT/HCPCS: 99283

== ENCOUNTER → 2022-10-06 07:57 | Outpatient (BNVA) | payer MEDICARE, SELFPAY | PROVIDERS: Referring Provider Family Medicine; Visit Provider Specialist | DX: R56.9 Unspecified convulsions (principal) | CPT/HCPCS: 95812 ==

== ENCOUNTER → 2023-04-28 10:46 | Outpatient (BNVA) | payer MEDICARE, SELFPAY | PROVIDERS: Visit Provider Psychiatry & Neurology Psychiatry | DX: Z79.899 Other long term (current) drug therapy (principal); F31.9 Bipolar disorder, unspecified | CPT/HCPCS: 80053; 80061; 83036; 84443 ==

== ENCOUNTER 2023-06-02 22:33 | Emergency (ER) | payer MEDICARE, SELFPAY ==
[2023-06-02 22:37] VITALS: BP 159/95; PULSE 90; RESP 18; TEMP 36.6; O2SAT 98; BMI 30.7
--- NOTE | 2023-06-02 23:06 | ED_ITS ---
HPI - Dental/Oral General: Chief complaint: Dental/Oral Stated complaint: bleeding post tooth extraction Time Seen by Provider: 06/02/23 23:05 History of Present Illness: Patient comes in today for persistent bleeding after dental extraction. Patient has 2 molars and 1 premolar removed from his left lower jaw. Patient has some oozing of blood from the site but no pulsating of blood is noted. Patient has history of mental health disorder. Review of Systems General: Reports: 10 or more systems reviewed and unremarkable except in HPI and below ENMT: Reports: other (Bleeding post dental procedure) PFS ED PFSH: Medical History No pertinent family history Psychiatric care Social History Smoking and tobacco status: current every day smoker cigarettes Packs smoked per day: 0.75 Years cigarettes smoked: 30 Quit status (tobacco): has tried quititng Number of times tried to quit tobacco: 1 Second hand smoke exposure: Yes Smoking risk assessment/counseling performed?: No Alcohol intake: current Alcohol intake frequency: holidays/special occasions only Alcohol type: beer and hard liquor Desire information about alcohol rehabilitation?: No Counseling given: No Substance/Drug Use: current Substance/Drug use frequency: daily Desire information about substance/drug rehabilitation?: No Counseling given: No Physical Exam Const: COMMON NORMALS: alert HENMT: HEAD & SCALP: normal to inspection TEETH & GINGIVA: Yes other (Recent dental extraction area with minimal bleeding) Neck/C-Spine: COMMON NORMALS: full ROM Resp: COMMON NORMALS: normal respiratory effort Cardio: COMMON NORMALS: regular rate RATE: regular rate Neuro: SENSORIUM/ORIENTATION: Yes alert Course Vital Signs: Vital signs: Vital Signs Temperature 97.9 F 06/02/23 22:37 Pulse Rate 90 06/02/23 22:37 Respiratory Rate 18 06/02/23 22:37 Blood Pressure 159/95 06/02/23 22:37 Pulse Oximetry 98 06/02/23 22:37 Oxygen Delivery Me thod Room Air 06/02/23 22:37 MDM - Dental/Oral Medical Decision Making 47-year-old male patient comes in for bleeding after dental extraction. On exam patient has some oozing at the dental extraction sites of his left lower jaw. No pulsating bleeding is noted. Patient has oozing at the extraction points. Posterior pharynx is normal. Vital signs are normal. Differential diagnosis includes but not limited to anemia, bleeding dental postprocedure, malingering, anxiety about health. No signs of significant bleeding was noted. TXA saturated gauze was folded and placed next to the bleeding, with recommendation to hold pressure to help control oozing. CBC was normal. Reviewed exam with patient and family with recommendations of treatment and follow-up. Patient and family both reported understanding and agreed to plan. Lab Data 06/02/23 23:36 Laboratory Results WBC 10.34 10^3/uL (3.29-11.43) 06/02/23 23: RBC 5.14 10^6/uL (3.85-5.65) 06/02/23 23: Hgb 15.90 g/dL (11.27-16.99) 06/02/23 23:36 Hct 46.2 % (37-53) 06/02/23 23: MCV 89.9 fl (82-101) 06/02/23 23: MCH 30.9 pg (27-33) 06/02/23 23: MCHC 34.4 g/dL (30-55) 06/02/23 23:36 RDW 12.9 % (12.1-15.1) 06/02/23 23:36 Plt Count 241 10^3/cmm (157-399) 06/02/23 23:36 MPV 8.9 fL (7.4-10.4) 06/02/23 23:36 Neut % (Auto) 57.3 % 06/02/23 23:36 Lymph % (Auto) 31.6 % 06/02/23 23:36 [place] % (Auto) 8.9 % 06/02/23 23:36 Eos % (Auto) 1.3 % 06/02/23 23:36 Baso % (Auto) 0.5 % 06/02/23 23:36 Neut # (Auto) 5.93 10^3/uL (1.8-7.7) 06/02/23 23:36 Lymph # (Auto) 3.3 10^3/uL (0.8-4.8) 06/02/23 23:36 [place] # (Auto) 0.9 10^3/uL (0.2-0.9) 06/02/23 23:36 Eos # (Auto) 0.1 10^3/uL (0.0-0.8) 06/02/23 23:36 Baso # (Auto) 0.1 10^3/uL (0.0-0.1) 06/02/23 23:36 Nucleated RBC % (auto) 0 % 06/02/23 23:36 Nucleated RBCs # 0.0 /100WBC 06/02/23 23:36 Discharge Plan Discharge Patient Disposition: Home Clinical Impression: Postoperative bleeding from mouth, Status post tooth extraction Condition: Stable Prescriptions: No Action buspirone 10 mg tablet 30 mg PO BID Qty: 180 2RF Seroquel 400 mg tablet 800 mg PO BEDTIME Qty: 60 2RF trazodone 100 mg tablet 400 mg PO BEDTIME Qty: 120 2RF Centrum Men 8 mg iron- 200 mcg-600 mcg Tablet 1 tab PO QAM Discharge Orders: Discharge ED (Routine); Ordered 06/02/23 Ordered By: Issac Irizarry Discharge Diet: Advance as tolerated Discharge Activity: Increase activity as tolerated Patient Instructions: Dental Laceration (ED) Activity Restrictions/Additional Instructions: Bleeding from the wound site should subside after 12 to 24 hours. Continue to change out gauze until bleeding stops. Talk to dentist in the morning. Return to ER for new concerns. Coding Level of Care Code ED Heavy Duty Press Operator for Brina Harmon
[2023-06-02] MEDS: tranexamic acid 1,000 mg/10mL SDV 1000 MG XX (23:27)
[2023-06-02 23:42] LABS: Basophils # 0.1 10^3/uL (0.0-0.1); Basophils % 0.5 %; Eosinophils # 0.1 10^3/uL (0.0-0.8); Eosinophils % 1.3 %; Hematocrit 46.2 % (37-53); Lymphocytes # 3.3 10^3/uL (0.8-4.8); Lymphocytes % 31.6 %; Mean Corpuscular HGB Conc 34.4 g/dL (30-55); Mean Corpuscular Hemoglobin 30.9 pg (27-33); Mean Corpuscular Volume 89.9 fl (82-101); Mean Platelet Volume 8.9 fL (7.4-10.4); Monocytes # 0.9 10^3/uL (0.2-0.9); Monocytes % 8.9 %; Neutrophils # 5.93 10^3/uL (1.8-7.7); Neutrophils % 57.3 %; Nucleated Red Blood Cells % 0 %; Platelet Count 241 10^3/cmm (157-399); Red Blood Count 5.14 10^6/uL (3.85-5.65); Red Cell Distribution Width 12.9 % (12.1-15.1); White Blood Count 10.34 10^3/uL (3.29-11.43)
--- NOTE | 2023-06-03 15:24 | DCPLANNER ---
assistant housekeeping manager called patient due to no primary care physician - heel caser called phone number [phone] unable to speak with patient at this time, a voicemail was left for patient to return case aide phone call.
--- NOTE | 2023-06-04 09:41 | DCPLANNER ---
manager database administration called patient due to no primary care physician - spoke with patients , who stated that patient sees Dr. Poole at [facility] [place].
== END 2023-06-03 00:12 | disposition home or self-care (01) ==
PROVIDERS: Emergency Provider Nurse Practitioner Family; PCP Family Medicine
DX: K91.840 Postprocedural hemorrhage of a digestive system organ or structure following a digestive system procedure (principal); Y84.8 Other medical procedures as the cause of abnormal reaction of the patient, or of later complication, without mention of misadventure at the time of the procedure; K08.409 Partial loss of teeth, unspecified cause, unspecified class; F17.210 Nicotine dependence, cigarettes, uncomplicated
CPT/HCPCS: 36415; 85025; 99283

== ENCOUNTER 2024-03-19 20:16 | Emergency (ER) | payer MEDICARE, SELFPAY ==
[2024-03-19 20:47] VITALS: BP 151/93; PULSE 116; RESP 18; TEMP 36.7; O2SAT 97; BMI 29.7
[2024-03-19] MEDS: HYDROcodone-acetaminophen 7.5-325 mg Tablet 1 TAB PO (22:25)
[2024-03-19] MEDS: LORazepam 1 mg Tablet PO (22:25)
[2024-03-19] MEDS: tetanus-dipt-pertussis 0.5 mL SDV IM (22:25)
--- NOTE | 2024-03-20 00:04 | ED_ITS ---
HPI - Wound/Laceration General: Chief Complaint: Wound/Laceration Stated Complaint: Left leg injury Time Seen by Provider: 03/19/24 22:03 Source: patient Mode of arrival: ambulatory Limitations: no limitations History of Present Illness: Patient is a 48-year-old male presenting to the emergency department due to laceration to left heel. Patient states he was unloading a lawnmower off of a pallet, when the pallet fell and he injured his left ankle in the process. He arrives with bleeding controlled and laceration directly over the left Achilles. Pain noted with ambulation. He denies any distal neurovascular issues. Tetanus is not up-to-date. Has not taken anything for pain at this time, though he does request something for pain and to ease his nerves. Not on any blood thinners. No other symptoms to report at this time. Onset (ago): hour(s) Extremity Location: Left: ankle (Posterior/Achilles) Place: home Patient tetanus UTD: No Context: accidental Associated symptoms: Reports no associated symptoms; Denies chills, fever(s), nausea or vomiting Treatments prior to arrival: bandage Review of Systems General: Reports: 10 or more systems reviewed and unremarkable except in HPI and below Const: Denies: fever(s), chills or fatigue Eyes: Denies: change in vision ENMT: Denies: throat pain, ear or mastoid pain or nasal discharge Card: Denies: chest pain, palpitations, swelling of feet/ankles or lightheadedness Resp: Denies: dyspnea, productive cough or wheezing GI: Denies: abdominal pain, nausea, vomiting, diarrhea or constipation : Denies: flank pain, difficulty urinating, dysuria or urinary frequency Musc: Denies: neck pain, back pain or joint pain Skin/Breast: Reports: skin pain, skin tenderness and new lesions (Laceration to left posterior ankle); Denies: rash Neuro: Denies: headache(s), numbness in extremities or weakness in extremities PFSH ED PFSH: Medical History No pertinent family history Psychiatric care Social History Smoking and tobacco/nicotine status: current every day tobacco/nicotine user cigarettes Packs smoked per day: 0.75 Years cigarettes smoked: 30 Quit status (tobacco/nicotine): has tried quititng Number of times tried to quit tobacco: 1 Second hand smoke exposure: Yes Alcohol intake: current Alcohol intake frequency: holidays/special occasions only Alcohol type: beer and hard liquor Substance/Drug Use: current Substance/Drug use frequency: daily Physical Exam Const: COMMON NORMALS: no acute distress, average body habitus, patient oriented x3, no limitations, healthy appearing, alert and well nourished HENMT: COMMON NORMALS: normocephalic and atraumatic HEAD & SCALP: normocephalic and atraumatic Eye: COMMON NORMALS: EOMs intact bilaterally and conjunctivae normal CO NJUNCTIVA: Yes conjunctivae normal Neck/C-Spine: COMMON NORMALS: full ROM Resp: COMMON NORMALS: normal respiratory effort, No use of accessory muscles and clear to auscultation bilaterally AUSCULTATION: clear to auscultation bilaterally Cardio: COMMON NORMALS: regular rate and regular rhythm RATE: regular rate RHYTHM: regular rhythm Extremity: COMMON NORMALS: full ROM, capillary refill normal, no clubbing, cyanosis or edema and no pedal edema Neuro: COMMON NORMALS: patient oriented x3, moves all extremities, no focal motor deficits and no sensory deficits noted SENSORIUM/ORIENTATION: Yes alert Skin: NARRATIVE SKIN EXAM: There is a large, approximately 5 cm irregular laceration noted to patient's left Achilles area. No active bleeding at this time. No foreign body or contamination noted. Procedures Laceration Laceration 1: Site: lower extremity Side (If applicable): left Size (cm): 5 Description: irregular and clean Depth: simple, single layer Local Anesthetic: lidocaine 2% and with epi Amount of anesthesia used (mL): 6 Pre-repair: wound explored and irrigated extensively Skin layer closed with: nylon Size (cm): 4-0 Number of sutures: 11 Technique: simple, interrupted Course Vital Signs: Vital signs: Vital Signs Temperature 98.0 F 03/19/24 20:47 Pulse Rate 116 H 03/19/24 20:47 Respiratory Rate 18 03/19/24 20:47 Blood Pressure 151/93 03/19/24 20:47 Pulse Oximetry 97 03/19/24 20:47 Oxygen Delivery Me thod Room Air 03/19/24 20:47 MDM - Wound/Laceration Medical Decision Making Patient presented with laceration to left Achilles. No distal neurological issues reported. Tetanus was updated here today. Laceration was repaired, see procedure note. Procedure tolerated well. Patient dressed appropriately and given proper wound care instructions and reasons to return. Patient discharged home. No radiology studies performed this visit Discharge Plan Discharge Patient Disposition: Home Clinical Impression: Laceration of ankle Condition: Stable Prescriptions: No Action buspirone 10 mg tablet 30 mg PO BID Qty: 180 4RF Seroquel 400 mg tablet 800 mg PO BEDTIME Qty: 60 4RF trazodone 100 mg tablet 400 mg PO BEDTIME Qty: 120 4RF Centrum Men 8 mg iron- 200 mcg-600 mcg Tablet 1 tab PO QAM Discharge Orders: Discharge ED (Routine); Ordered 03/19/24 Ordered By: Adriel Galaviz Referrals: Gage Poole MD [Primary Care Provider] - Discharge Diet: Usual diet Discharge Activity: Increase activity as tolerated Patient Instructions: Laceration (ED) Activity Restrictions/Additional Instructions: Sutures out in 7-10 days. Please keep wound dry for the first 24-48 hours, afterwards you may dab clean with soap and water, keep dry at all other times. Tylenol or ibuprofen for pain. Ice to the area for added relief. If you develop any increased redness, swelling, or other signs of infection, please return for reevaluation. Otherwise you may follow-up with primary care. Coding Level of Care Code ED Restaurant Crew for Brina Harmon
== END 2024-03-19 23:14 | disposition home or self-care (01) ==
PROVIDERS: Emergency Provider Physician Assistant; PCP Family Medicine
DX: S91.012A Laceration without foreign body, left ankle, initial encounter (principal); F17.210 Nicotine dependence, cigarettes, uncomplicated; W22.8XXA Striking against or struck by other objects, initial encounter; Z23 Encounter for immunization
CPT/HCPCS: 12002; 90715; 99283; E0114

== ENCOUNTER → 2025-02-08 11:45 | Outpatient (BNVA) | payer MEDICARE, SELFPAY | PROVIDERS: PCP Family Medicine; Visit Provider Psychiatry & Neurology Psychiatry | DX: F31.9 Bipolar disorder, unspecified (principal); Z79.899 Other long term (current) drug therapy | CPT/HCPCS: 80053; 80061; 83036; 84443; 85025 ==